=== PATIENT | male | born 1975 | race Two or more races ===

== ENCOUNTER 2017-07-19 05:00 | Observation (INO) | payer OTHER ==
[~2017-07-19] VITALS: Ht 175.3 cm; Wt 81.1 kg
[~2017-07-19 05:00] MED LIST: ANTIVERT25 MG PO; LISINOPRIL20 MG PO; LOVASTATIN40 MG PO; METFORMIN HCL1000 MG PO; NEURONTIN600 MG PO
[2017-07-19 05:53] LABS: EOSINOPHIL (%) 2.6 % (0-5); EOSINOPHIL COUNT 0.2 K/uL (0-0.3); HEMATOCRIT 37.2 % (38.0-50.0); IMMATURE GRANULOCYTE (%) 0.3 % (0.0-0.7); INSTRUMENT ABS NEUTROPHIL CT 3.8 K/uL; LYMPHOCYTE COUNT 1.8 K/uL (1.0-2.8); MCV 81.4 FL (86-99); MEAN PLAT.VOLUME 9.3 uM^3 (9.0-12.4); MONOCYTE (%) 10.3 % (3-12); MONOCYTE COUNT 0.7 K/uL (0-0.8); NEUTROPHIL COUNT 3.8 K/uL (1.8-6.4); PLATELET COUNT 261 K/uL (156-360); RBC DIS.WIDTH-SD 38.3 % (39-53); RED BLOOD COUNT 4.57 M/uL (4.00-5.50); WHITE BLOOD COUNT 6.5 K/uL (4.1-10.2)
[2017-07-19 05:55] LABS: CARBON DIOXIDE (BICARBONATE) 32.9 MEQ/L (20-31)
[2017-07-19 06:04] LABS: CHLORIDE 99 mEq/L (99-109); POTASSIUM 3.4 mEq/L (3.7-5.4); SODIUM 137 mEq/L (136-147)
[2017-07-19 06:08] LABS: ANION GAP 12 MEQ/L (2-14)
[2017-07-19 06:10] LABS: GFR ESTIMATE (CALCULATED) > 59 mL/min/
[2017-07-19 06:11] LABS: UREA NITROGEN (BUN) 10 mg/dL (9-23)
[2017-07-19 06:13] LABS: GLUCOSE 461 mg/dL (70-99)
[2017-07-19 08:00] LABS: TROP-I INTERPRETATION NEGATIVE; TROPONIN-I < 0.01 ng/mL (0.0-0.30)
[2017-07-19 08:19] LABS: POINT-OF-CARE METER ID UU13113702
[2017-07-19 08:32] LABS: POINT-OF-CARE METER ID UU13113702; POINT-OF-CARE USER ID 515033160
[2017-07-19] MEDS ORDERED: VENLAFAXINE HC150 M1 PO (09:08)
[2017-07-19] MEDS ORDERED: VENLAFAXINE HCL75 M3 PO (09:08)
[2017-07-19] MEDS ORDERED: LITHIUM CARBON300 M1 PO (09:09)
[2017-07-19] MEDS ORDERED: TIZANIDINE HCL4 M1 PO (09:09)
[2017-07-19] MEDS ORDERED: ADVIL,NUPRIN,M200 MG PO (09:10)
[2017-07-19 10:49] LABS: TROP-I INTERPRETATION NEGATIVE; TROPONIN-I 0.02 ng/mL (0.0-0.30)
[2017-07-19 11:16] LABS: Estimated Average Glucose 364 mg/dL (70-123); HEMOGLOBIN A1c (GLYCOHEMOGLOB) 14.3 % HGB (Below 5.7)
[2017-07-19 13:46] LABS: POINT-OF-CARE METER ID UU13113702
[2017-07-19 14:22] LABS: TROP-I INTERPRETATION NEGATIVE; TROPONIN-I < 0.01 ng/mL (0.0-0.30)
[2017-07-19 16:20] VITALS: BP 131/91
[2017-07-19 17:30] LABS: POINT-OF-CARE METER ID UU14162513
[2017-07-19 18:31] LABS: TROP-I INTERPRETATION NEGATIVE; TROPONIN-I < 0.01 ng/mL (0.0-0.30)
[2017-07-19 19:27] VITALS: BP 135/89
[2017-07-19 19:42] VITALS: BP 134/95
[2017-07-19 19:43] VITALS: BP 135/93
[2017-07-19 21:58] LABS: TROP-I INTERPRETATION NEGATIVE; TROPONIN-I < 0.01 ng/mL (0.0-0.30)
[2017-07-19 21:59] LABS: ALKALINE PHOSPHATASE 82 IU/L (3-129); ANION GAP 7 MEQ/L (2-14); CHLORIDE 101 MEQ/L (99-109); GFR ESTIMATE (CALCULATED) > 59 mL/min/; GLUCOSE 333 mg/dL (70-99); MAGNESIUM 1.7 mg/dl (1.3-2.7); POTASSIUM 3.9 MEQ/L (3.7-5.4); SAMPLE HEMOLYSIS CHECK 0; SAMPLE ICTERIC CHECK 0; SAMPLE LIPEMIA CHECK 0; SODIUM 138 MEQ/L (136-147); TOTAL BILIRUBIN 0.5 MG/DL (0.0-1.0); UREA NITROGEN (BUN) 8 mg/dL (9-23)
[2017-07-19 22:45] VITALS: BP 115/82
[2017-07-19 22:52] LABS: POINT-OF-CARE METER ID UU13113831
[2017-07-20 00:17] VITALS: BP 131/81
[2017-07-20 04:06] VITALS: BP 123/82
[2017-07-20 05:49] LABS: HEMATOCRIT 40.9 % (38.0-50.0); MCHC 31.3 G/DL (30.0-36.0); MCV 83.1 FL (86-99); MEAN PLAT.VOLUME 9.4 uM^3 (9.0-12.4); PLATELET COUNT 269 K/uL (156-360); RBC DIS.WIDTH-CV 13.3 % (11.8-14.6); RBC DIS.WIDTH-SD 40.4 % (39-53); RED BLOOD COUNT 4.92 M/uL (4.00-5.50); WHITE BLOOD COUNT 6.4 K/uL (4.1-10.2)
[2017-07-20 06:15] LABS: ANION GAP 8 MEQ/L (2-14); CHLORIDE 104 MEQ/L (99-109); GFR ESTIMATE (CALCULATED) > 59 mL/min/; GLUCOSE 224 mg/dL (70-99); POTASSIUM 4.1 MEQ/L (3.7-5.4); SAMPLE HEMOLYSIS CHECK 0; SAMPLE ICTERIC CHECK 0; SAMPLE LIPEMIA CHECK 0; SODIUM 142 MEQ/L (136-147); UREA NITROGEN (BUN) 9 mg/dL (9-23)
[2017-07-20 07:48] VITALS: BP 136/91
[2017-07-20 12:35] VITALS: BP 149/99
[2017-07-20] MEDS ORDERED: LANTUS 3 M100 UNITS1 SC (15:37)
== END 2017-07-20 15:44 | disposition home or self-care (01) ==
LOC: EME 05:00 → EDOF 09:32 → 5WEST 09:32 → EDOF 09:32 → CANRESERV 09:41 → ENRESERV 09:41 → 5WEST 16:13
PROVIDERS: Emergency Medicine; Hospitalist; Physician Assistant Medical
DX: R55 Syncope and collapse (principal); R94.31 Abnormal electrocardiogram [ECG] [EKG]; E11.65 Type 2 diabetes mellitus with hyperglycemia; E11.42 Type 2 diabetes mellitus with diabetic polyneuropathy; T38.3X6A Underdosing of insulin and oral hypoglycemic [antidiabetic] drugs, initial encounter; Z91.128 Patient's intentional underdosing of medication regimen for other reason; R42 Dizziness and giddiness; E87.6 Hypokalemia; E78.5 Hyperlipidemia, unspecified; I10 Essential (primary) hypertension; M79.7 Fibromyalgia; Z79.84 Long term (current) use of oral hypoglycemic drugs; F41.9 Anxiety disorder, unspecified; F31.9 Bipolar disorder, unspecified
CPT/HCPCS: 70551; 80048; 80048 91; 80076; 80306 90; 81003; 82803; 82948; 83036; 83735; 84484; 85025; 85027; 93005; 99281; 99285; G0378; G8978 GP CH; G8979 GP CH; G8980 GP CH; J1650; J1815; J7030; S0028

== ENCOUNTER 2017-10-15 01:09 | Inpatient (IN) | payer OTHER ==
[~2017-10-15] VITALS: Ht 175.3 cm; Wt 86.7 kg
[~2017-10-15 01:09] MED LIST changes: +ADVIL,NUPRIN,M200 MG PO; +LANTUS 3 M100 UNITS1 SC; +LITHIUM CARBON300 M1 PO; +TIZANIDINE HCL4 M1 PO; +VENLAFAXINE HC150 M1 PO; +VENLAFAXINE HCL75 M3 PO
[2017-10-15 01:51] LABS: HEMATOCRIT 39.5 % (38.0-50.0); MCH 27.2 PG (29.0-34.0); MCHC 32.4 G/DL (30.0-36.0); MEAN PLAT.VOLUME 9.3 uM^3 (9.0-12.4); PLATELET COUNT 246 K/uL (156-360); RBC DIS.WIDTH-CV 13.2 % (11.8-14.6); RBC DIS.WIDTH-SD 40.1 % (39-53); WHITE BLOOD COUNT 13.1 K/uL (4.1-10.2)
[2017-10-15 01:59] LABS: CHLORIDE 98 mEq/L (99-109); POTASSIUM 3.7 mEq/L (3.7-5.4); SODIUM 138 mEq/L (136-147)
[2017-10-15 02:01] LABS: GLUCOSE 344 mg/dL (70-99)
[2017-10-15 02:02] LABS: ANION GAP 12 MEQ/L (2-14)
[2017-10-15 02:03] LABS: TOTAL BILIRUBIN 0.2 mg/dL (0.0-1.0)
[2017-10-15 02:04] LABS: SERUM ETHYL ALCOHOL < 10 mg/dL
[2017-10-15 02:05] LABS: ALKALINE PHOSPHATASE 113 IU/L (3-129); GFR ESTIMATE (CALCULATED) > 59 mL/min/ (58.99-99999)
[2017-10-15 02:06] LABS: UREA NITROGEN (BUN) 12 mg/dL (9-23)
[2017-10-15 02:23] LABS: ADD MIUA? NO; BILIRUBIN NEGATIVE; BLOOD NEGATIVE; COLOR STRAW ((YELLOW)); GLUCOSE (STRIP) >=500; KETONES NEGATIVE; LEUKOCYTES NEGATIVE; NITRITE NEGATIVE; PROTEIN (STRIP) NEGATIVE; SPECIFIC GRAVITY 1.012 (1.000-1.030); UROBILINOGEN 0.2 MG/DL (0.2-1.0)
[2017-10-15 02:34] LABS: AMPHETAMINE NEGATIVE (500 ng/mL); BARBITURATES NEGATIVE (200 ng/mL); BENZODIAZEPINES NEGATIVE (150 ng/mL); COCAINE NEGATIVE (150 ng/mL); INTERNAL CONTROLS VALID? YES; METHADONE NEGATIVE (200 ng/mL); METHAMPHETAMINE NEGATIVE (500 ng/mL); OPIATES (MORPHINE) NEGATIVE (100 ng/mL); OXYCODONE NEGATIVE (100 ng/mL); PHENCYCLIDINE NEGATIVE (25 ng/mL); PROPOXYPHENE NEGATIVE (300 ng/mL); THC CANNABINOIDS NEGATIVE (50 ng/mL); TRICYCLIC ANTIDEPRESSANTS NEGATIVE (300 ng/mL)
[2017-10-15 04:39] VITALS: BP 108/69
[2017-10-15 07:46] VITALS: BP 130/76
[2017-10-15 09:00] LABS: POINT-OF-CARE METER ID UU13113830
[2017-10-15 12:01] LABS: POINT-OF-CARE METER ID UU13113830
[2017-10-15 15:57] VITALS: BP 140/80
[2017-10-15 19:17] VITALS: BP 133/83
[2017-10-16 06:10] LABS: POINT-OF-CARE METER ID UU13113830; POINT-OF-CARE USER ID ENVTLS63
[2017-10-16 07:08] VITALS: BP 126/78
[2017-10-16 15:35] VITALS: BP 122/85
[2017-10-17 06:21] LABS: POINT-OF-CARE METER ID UU13113830; POINT-OF-CARE USER ID ENVTLS63
[2017-10-17 07:57] VITALS: BP 130/69
[2017-10-17 15:37] VITALS: BP 119/81
[2017-10-18 08:04] VITALS: BP 110/75
[2017-10-18] MEDS ORDERED: LITHIUM CARBON300 MG PO (09:31)
== END 2017-10-18 12:26 | disposition home or self-care (01) | DRG 885 ==
LOC: EME 01:09 → 1WEST 02:59 → EDOF 02:59 → ENRESERV 04:06 → 1WEST 04:20
PROVIDERS: Emergency Medicine; Psychiatry & Neurology Psychiatry
DX: F33.2 Major depressive disorder, recurrent severe without psychotic features (principal); R45.851 Suicidal ideations; F60.1 Schizoid personality disorder; F41.9 Anxiety disorder, unspecified; F65.4 Pedophilia; E11.40 Type 2 diabetes mellitus with diabetic neuropathy, unspecified; I10 Essential (primary) hypertension; G89.29 Other chronic pain; M79.7 Fibromyalgia; E78.5 Hyperlipidemia, unspecified; Z87.442 Personal history of urinary calculi
CPT/HCPCS: 36415; 80053; 80178; 81003; 82947; 82948; 85027; 90839; G0480